=== PATIENT | female | born 1935 | race Caucasian/White ===

== ENCOUNTER 2017-02-09 10:18 | Outpatient (CLI) | payer MEDICARE, OTHER | END 2017-02-09 10:19 | disposition home or self-care (01) | DX: R39.15 Urgency of urination (principal) ==

== ENCOUNTER 2017-06-17 10:49 | Outpatient (CLI) | payer MEDICARE, OTHER ==
--- NOTE | 2017-06-19 07:34 | Mammography Report ---
DIGITAL BILATERAL SCREENING MAMMOGRAM: 06/17/2017 CLINICAL HISTORY: This is an 82-year-old female in for routine screening mammogram. Patient had pos sible aunt with breast cancer. Patient has had no prior breast surgeries. COMPARISON: 04/27/2009, 04/30/2010, 05/13/2011, 06/19/2015, 06/16/2016 TECHNIQUE: Craniocaudad and oblique lateral views of each breast were obtained with [facility] digital mammography. FINDINGS: Heterogeneously dense breasts are noted bilaterally. A few scattered benign-appearing brittanie cifications are noted in the breasts. No clusters of calcification are seen. No masses are noted. No change is detected. IMPRESSION: BREASTS APPEAR RADIOGRAPHICALLY BENIGN. BIRADS CATEGORY 1 - NEGATIVE. RECOMMENDATIONS: Annual bilateral screening mammography. STANDARD QUALIFYING STATEMENTS 1. This examination was reviewed with the aid of Computer-Aided Detection (CAD). 2. A negative or benign imaging report should not delay biopsy if clinically suspicious findings are present. Consider surgical consultation if warranted. More than 5% of cancers are not identified by i maging. 3. Dense breasts may obscure an underlying neoplasm. JOB #: [id number] EXT JOB #:[id number]
== END 2017-06-17 10:50 | disposition home or self-care (01) ==
LOC: DI.N 10:49
PROVIDERS: ATTEND Family Medicine
DX: Z12.31 Encounter for screening mammogram for malignant neoplasm of breast (principal)
CPT/HCPCS: 77067

== ENCOUNTER 2018-02-09 15:56 | Outpatient (CLI) | payer MEDICARE, OTHER ==
[2018-02-09 12:29] LABS: BASOPHILS % (AUTO) 0.7 %; EOSINOPHILS # (AUTO) 0.2 10^3/uL (0.0-0.7); EOSINOPHILS % (AUTO) 3.6 %; HGB - HEMOGLOBIN 13.1 g/dL (12.0-16.0); MEAN CORPUSCULAR HEMOGLOBIN 30.5 pg (27.0-31.0); MEAN CORPUSCULAR HGB CONC 33.6 g/dL (32.0-36.0); MEAN CORPUSCULAR VOLUME 90.7 fL (81.0-99.0); MEAN PLATELET VOLUME 7.4 fL (7.9-10.8); MONOCYTES # (AUTO) 0.6 10^3/uL (0.0-1.0); MONOCYTES % (AUTO) 9.6 %; NEUTROPHILS # (AUTO) 2.5 10^3/uL (1.5-6.6); NEUTROPHILS % (AUTO) 39.1 %; PLT - PLATELET COUNT 279 10^3/uL (130-450); RED CELL DISTRIBUTION WIDTH 13.4 % (12.0-15.0); WHITE BLOOD COUNT 6.3 x10^3/uL (4.8-10.8)
[2018-02-09 12:52] LABS: ALBUMIN 4.5 g/dL (3.2-5.5); ALBUMIN/GLOBULIN RATIO 1.7 (1.0-2.2); ALKALINE PHOSPHATASE 47 IU/L (42-121); ALT ALANINE AMINOTRANSFERASE 11 IU/L (10-60); AST ASPARTATE AMINOTRANSFERASE 21 IU/L (10-42); BILIRUBIN,TOTAL 0.4 mg/dL (0.2-1.0); BUN - BLOOD UREA NITROGEN 16 mg/dL (6-20); CALCIUM 9.7 mg/dL (8.5-10.3); CARBON DIOXIDE - CO2 25 mmol/L (21-32); CHLORIDE 104 mmol/L (101-111); CHOL/HDL RATIO 6.1 (<4.4); CHOLESTEROL 279 mg/dL; CREATININE 0.5 mg/dL (0.4-1.0); GFR - MDRD 118 (>89); GLUCOSE 86 mg/dL (70-100); HDL CHOLESTEROL 46 mg/dL; LDL CHOLESTEROL,CALCULATED 188 mg/dL; LDL/HDL RATIO 4.1 (<4.4); SODIUM 140 mmol/L (135-145); TOTAL PROTEIN 7.2 g/dL (6.7-8.2); VLDL CHOLESTEROL 45 mg/dL
== END 2018-02-09 15:57 | disposition home or self-care (01) ==
LOC: LAB.WCP 15:56
PROVIDERS: ATTEND Family Medicine
DX: I10 Essential (primary) hypertension (principal)
CPT/HCPCS: 36415; 80053; 80061; 83721; 85025

== ENCOUNTER 2018-08-03 13:44 | Outpatient (CLI) | payer MEDICARE, OTHER ==
--- NOTE | 2018-08-04 10:56 | Mammography Report ---
Reason: SCREENING MAMMO Procedure Date: 08/03/2018 Accession Number: [id number] / [id number] Procedure: MGN - Screening Mammo Dig Bilat CPT Code: FULL RESULT: EXAM: Screening Mammo Dig Bilat DATE: 08/03/2018 2:05 PM CLINICAL HISTORY: Routine screening TECHNIQUE: Bilateral CC and MLO views were obtained. COMPARISON: 06/17/2017, 06/16/2016, 06/19/2015 and 05/13/2011 FINDINGS: The breast tissue is heterogeneously dense. There is been no significant interval change. Scattered benign-appearing calcifications are stable. No suspicious masses, clustered microcalcifications, or regions of architectural distortion are identified. IMPRESSION: Benign findings RECOMMENDATION: Routine annual screening unless otherwise clinically indicated. BIRADS CATEGORY 2: Benign findings STANDARD QUALIFYING STATEMENTS: 1. This examination was reviewed with the aid of Computer-Aided Detection (CAD). 2. A negative or benign imaging report should not delay biopsy if clinically suspicious findings are present. Consider surgical consultation if warrented. More than 5% of cancers are not identified by imaging. 3. Dense breasts may obscure an underlying neoplasm.
== END 2018-08-03 13:45 | disposition home or self-care (01) ==
LOC: DI.N 13:44
PROVIDERS: ATTEND Radiology Diagnostic Radiology
DX: Z12.31 Encounter for screening mammogram for malignant neoplasm of breast (principal)
CPT/HCPCS: 77067

== ENCOUNTER 2018-09-29 14:41 | Outpatient (CLI) | payer MEDICARE, OTHER ==
--- NOTE | 2018-09-29 16:00 | XRAY Report ---
Reason: KNEE PAIN, RIGHT AND LEFT Procedure Date: 09/29/2018 Accession Number: [id number] / [id number] Procedure: XR - Knee 3 View BILAT CPT Code: FULL RESULT: EXAMS: 1. Right Knee Radiography 2. Left Knee Radiography EXAM DATE: 09/29/2018 02:59 PM. CLINICAL HISTORY: Knee pain, right and left. COMPARISON: None. TECHNIQUE: 3 views each. FINDINGS: Right Knee: Bones: Marginal osteophytosis, minimal. No fractures or bone lesions. Joints: Joint space narrowing of the weightbearing compartment lateral greater than medial with chondrocalcinosis. No effusion. No subluxations. Soft Tissues: Normal. No soft tissue swelling. Left Knee: Bones: Mild to moderate marginal osteophytosis. No fractures or bone lesions. Joints: Joint space narrowing of the weightbearing compartment of the lateral greater than medial weightbearing compartments with chondrocalcinosis.. No effusion. No subluxations. Soft Tissues: Normal. No soft tissue swelling. IMPRESSION: Degenerative changes in the weightbearing compartments, laterally greater than medial. RADIA
== END 2018-09-29 14:42 | disposition home or self-care (01) ==
LOC: DI 14:41
PROVIDERS: ATTEND Family Medicine
DX: M17.0 Bilateral primary osteoarthritis of knee (principal)

== ENCOUNTER 2019-04-14 08:14 | Outpatient (CLI) | payer MEDICARE, OTHER ==
[2019-04-14 12:58] LABS: BILIRUBIN,URINE NEGATIVE (NEGATIVE); GLUCOSE, URINE (UA) NEGATIVE (NEGATIVE); KETONES,URINE (UA) NEGATIVE (NEGATIVE); LEUKOCYTE ESTERASE, URINE TRACE (NEGATIVE); NITRITE,URINE NEGATIVE (NEGATIVE); OCCULT BLOOD,URINE TRACE-LYSE (NEGATIVE); PROTEIN,URINE NEGATIVE (NEGATIVE); UROBILINOGEN,URINE 0.2 (NORMAL) E.U./dL (NORMAL)
[2019-04-14 13:03] LABS: BASOPHILS # (AUTO) 0.1 10^3/uL (0.0-0.1); BASOPHILS % (AUTO) 0.9 %; EOSINOPHILS # (AUTO) 0.2 10^3/uL (0.0-0.7); EOSINOPHILS % (AUTO) 3.3 %; HGB - HEMOGLOBIN 13.4 g/dL (12.0-16.0); LYMPHOCYTES # (AUTO) 3.1 10^3/uL (1.5-3.5); LYMPHOCYTES % (AUTO) 44.2 %; MEAN CORPUSCULAR HEMOGLOBIN 30.3 pg (27.0-31.0); MEAN CORPUSCULAR VOLUME 91.8 fL (81.0-99.0); MEAN PLATELET VOLUME 7.4 fL (7.9-10.8); MONOCYTES # (AUTO) 0.7 10^3/uL (0.0-1.0); MONOCYTES % (AUTO) 9.7 %; NEUTROPHILS # (AUTO) 2.9 10^3/uL (1.5-6.6); NEUTROPHILS % (AUTO) 41.9 %; PLT - PLATELET COUNT 313 10^3/uL (130-450); RED BLOOD COUNT 4.43 10^6/uL (4.20-5.40); RED CELL DISTRIBUTION WIDTH 13.3 % (12.0-15.0)
[2019-04-14 13:04] LABS: BACTERIA,URINE Rare /HPF (None Seen); CLARITY,URINE CLEAR (CLEAR); RBC,URINE 0-5 /HPF (0-5); SQUAMOUS EPITHELIAL CELL,UR FEW Squamous (<= Few)
[2019-04-14 13:28] LABS: ALBUMIN 4.3 g/dL (3.2-5.5); ALBUMIN/GLOBULIN RATIO 1.6 (1.0-2.2); ALKALINE PHOSPHATASE 49 IU/L (42-121); ALT ALANINE AMINOTRANSFERASE 15 IU/L (10-60); AST ASPARTATE AMINOTRANSFERASE 21 IU/L (10-42); BILIRUBIN,TOTAL 0.4 mg/dL (0.2-1.0); BUN - BLOOD UREA NITROGEN 15 mg/dL (6-20); CALCIUM 9.7 mg/dL (8.5-10.3); CARBON DIOXIDE - CO2 27 mmol/L (21-32); CHLORIDE 102 mmol/L (101-111); CHOL/HDL RATIO 5.9 (<4.4); CHOLESTEROL 259 mg/dL; CREATININE 0.6 mg/dL (0.4-1.0); GFR - MDRD 95 (>89); GLUCOSE 88 mg/dL (70-100); HDL CHOLESTEROL 44 mg/dL; LDL CHOLESTEROL,CALCULATED 158 mg/dL; LDL/HDL RATIO 3.6 (<4.4); SODIUM 139 mmol/L (135-145); VLDL CHOLESTEROL 57 mg/dL
== END 2019-04-14 08:15 | disposition home or self-care (01) ==
LOC: LAB.WCP 08:14
PROVIDERS: ATTEND Family Medicine
DX: I10 Essential (primary) hypertension (principal); E78.5 Hyperlipidemia, unspecified
CPT/HCPCS: 36415; 80053; 80061; 81001; 83721; 85025

== ENCOUNTER 2019-05-17 10:18 | Outpatient (CLI) | payer MEDICARE, OTHER ==
--- NOTE | 2019-05-17 13:03 | XRAY Report ---
Reason: COUGH,CHRONIC Procedure Date: 05/17/2019 Accession Number: [id number] / [id number] Procedure: WCP - Chest 2 View X-Ray CPT Code: 46848 FULL RESULT: EXAM: CHEST RADIOGRAPHY EXAM DATE: 05/17/2019 10:37 AM. CLINICAL HISTORY: Cough, chronic. COMPARISON: CHEST 2 VIEW PA/LAT 05/20/2015 11:25 AM. TECHNIQUE: 2 views. FINDINGS: Lungs/Pleura: Increasing crowding of retrocardiac pulmonary markings on the PA view without significant posterior airspace consolidation on lateral view. Additionally, in the lateral lower left lung is an apparent ill-defined nodule. This is not definitely demonstrated on the 2015 radiograph. Mediastinum: The cardiac silhouette is not enlarged. Aortic contour is tortuous with subtle calcifications. Other: None. IMPRESSION: Increasing pulmonary markings at the left lung base with suggestion of ill-defined nodule. Recommendation: Chest CT. RADIA
== END 2019-05-17 10:19 | disposition home or self-care (01) ==
LOC: DI.WCP 10:18
PROVIDERS: ATTEND Family Medicine
DX: R91.8 Other nonspecific abnormal finding of lung field (principal)
CPT/HCPCS: 71046

== ENCOUNTER 2019-05-17 10:20 | Outpatient (CLI) | payer MEDICARE, OTHER ==
--- NOTE | 2019-05-17 13:03 | XRAY Report ---
Reason: LOW BACK PAIN,CHRONIC Procedure Date: 05/17/2019 Accession Number: [id number] / [id number] Procedure: WCP - Lumbar Spine 2 View CPT Code: FULL RESULT: EXAM: LUMBOSACRAL SPINE RADIOGRAPHY EXAM DATE: 05/17/2019 10:37 AM. CLINICAL HISTORY: Low back pain, chronic. COMPARISONS: 02/20/2016 10:48 AM. TECHNIQUE: 2 views. FINDINGS: Alignment: There is a mild levoconvex scoliosis of the lumbar spine centered about L3, not significantly changed compared to 2016. There is no significant listhesis. Bones: Five [id number] lumbar vertebral bodies are present. The bones are qualitatively osteopenic; this limits evaluation for underlying fractures or masses. No definite fracture is detected. Disks: There is advanced loss of disk space height at essentially all lumbar levels with endplate sclerosis and marginal osteophytosis, progressed compared to 2016. Facets: Multilevel facet arthropathy is most pronounced at L4 and L5 where it is at least moderate. Sacroiliac Joints: Unremarkable. Soft Tissues: Normal. The visualized bowel gas pattern is normal. IMPRESSION: Multilevel degenerative changes of the lumbar spine. RADIA
== END 2019-05-17 10:21 | disposition home or self-care (01) ==
LOC: DI.WCP 10:20
PROVIDERS: ATTEND Family Medicine
DX: M47.816 Spondylosis without myelopathy or radiculopathy, lumbar region (principal); M51.36 Other intervertebral disc degeneration, lumbar region; M41.86 Other forms of scoliosis, lumbar region; R91.8 Other nonspecific abnormal finding of lung field
CPT/HCPCS: 71046; 72100

== ENCOUNTER 2019-05-19 14:32 | Outpatient (CLI) | payer MEDICARE, OTHER ==
--- NOTE | 2019-05-19 16:30 | CT Report ---
Reason: PULMONARY NODULE Procedure Date: 05/19/2019 Accession Number: [id number] / [id number] Procedure: CT - CHEST WO CPT Code: FULL RESULT: EXAM: CT CHEST EXAM DATE: 05/19/2019 02:47 PM. CLINICAL HISTORY: Pulmonary nodule. COMPARISONS: CHEST 2 VIEW 05/17/2019 10:15 AM. TECHNIQUE: Routine helical CT imaging was performed through the chest. IV contrast: None. Reconstructions: Coronal and sagittal. In accordance with CT protocol optimization, one or more of the following dose reduction techniques were utilized for this exam: automated exposure control, adjustment of mA and/or KV based on patient size, or use of iterative reconstructive technique. FINDINGS: Lungs/Pleura: There is a scant amount of linear consolidation or scarring in the right middle lobe and lingula. The finding in the lingula likely accounts for the radiographic finding on the prior study. There are a few solid nodules which measure 3 mm or less. Right upper lobe 2 mm pulmonary nodule image 16 series 3. Right upper lobe 2 mm nodule image 27. 2 mm left upper lobe nodule image 21. In the posterior left lower lobe is a linear Subsolid focus measuring 1.5 x 0.7 cm, image 42. At the right lung base is a minor amount of linear consolidation versus scarring or atelectasis, image 49 through 51. No pleural effusion or pneumothorax. Mediastinum: There are moderate three-vessel coronary calcifications. There is a mild amount of calcification of the aortic arch. There is no pericardial effusion. There is no mediastinal or hilar lymphadenopathy by size criteria. Bones: No aggressive osseous lesions. Visualized Abdomen: Partial visualization of a 1.8 cm exophytic hyperdense left renal lesion. Other: None. IMPRESSION: Linear consolidation or scarring in the lingula and right middle lobe account for the previously identified radiographic abnormality. Hyperdense exophytic 1.8 cm left renal lesion, partially imaged and uncharacterized. Recommend renal ultrasound as a low cost no radiation initial modality to see if this can be characterized as a simple cyst. Recommend follow-up of the described nodule(s) according to the following guidelines: Fleischner Society Recommendations 2017 MacMahon et al. Radiology 2017 Solid Nodules-Low Risk Patients: <6 mm (single or multiple) - No routine follow-up* Solid Nodules-High Risk Patients: <6 mm (single or multiple) -Optional CT at 12 months* *Nodules < 6mm do not require routine follow-up, but suspicious nodule morphology, upper lobe location, or both may warrant 12 month follow-up Subsolid nodules: >=6 mm (single GG) -CT at 6-12 months to confirm, then CT q2 years until 5 years RADIA
== END 2019-05-19 14:33 | disposition home or self-care (01) ==
LOC: DI 14:32
PROVIDERS: ATTEND Family Medicine
DX: R91.1 Solitary pulmonary nodule (principal); N28.89 Other specified disorders of kidney and ureter
CPT/HCPCS: 71250

== ENCOUNTER 2019-06-04 15:37 | Outpatient (CLI) | payer MEDICARE, OTHER ==
--- NOTE | 2019-06-05 | Ultrasound Report ---
Reason: KIDNEY MASS Procedure Date: 06/04/2019 Accession Number: [id number] / [id number] Procedure: US - Retroperitoneal CPT Code: FULL RESULT: EXAM: RENAL ULTRASOUND EXAM DATE: 06/04/2019 05:30 PM. CLINICAL HISTORY: Kidney mass. Evaluate. Left renal mass/cyst seen on the chest CT from 05/19/2019. COMPARISON: 02/20/2016 10:48 PM 02/20/2016 10:48 AM ABDOMEN/PELVIS W/O 05/03/2014 10:31 AM CHEST W/O 05/19/2019 2:43 PM. TECHNIQUE: Real-time scanning was performed with static images obtained. FINDINGS: Right Kidney: 9.8 x 4.9 x 5.2 cm. Mid pole renal cyst measuring 2.7 x 2.7 x 2.8 cm, appears to have a thin septation. This cyst measures increased compared to the prior where it measured 1.8 cm. Renal cortical thickness and echotexture appear within normal limits. No hydronephrosis. Left Kidney: 9.7 x 3.8 x 4.8 cm. Small exophytic upper pole renal cyst measuring 1.6 x 1.5 x 1.5 cm, but appears simple. Renal cortical thickness and echotexture appear within normal limits. No hydronephrosis. Bladder: Bilateral jets seen. The bladder volume was 75.5 cc. The bladder appears unremarkable. Other: Fatty liver. IMPRESSION: 1. Minimally complex right renal cyst. Small simple left upper pole renal cyst. No evidence for a solid renal mass. 2. Fatty liver. RADIA
== END 2019-06-04 15:38 | disposition home or self-care (01) ==
LOC: DI 15:37
PROVIDERS: ATTEND Family Medicine
DX: N28.1 Cyst of kidney, acquired (principal); K76.0 Fatty (change of) liver, not elsewhere classified
CPT/HCPCS: 76770

== ENCOUNTER 2019-10-06 10:15 | Outpatient (CLI) | payer MEDICARE, OTHER ==
--- NOTE | 2019-10-07 08:18 | Mammography Report ---
Reason: ROUTINE MAMMO Procedure Date: 10/06/2019 Accession Number: [id number] / [id number] Procedure: MGN - Screening Mammo Dig Bilat CPT Code: Final Report FULL RESULT: EXAM: Screening Mammo Dig Bilat DATE: 10/06/2019 10:37 AM CLINICAL HISTORY: Screening encounter. TECHNIQUE: (B) - Bilateral CC and MLO views were obtained. Left cleavage view is obtained. COMPARISON: 08/03/2018 through 04/30/2010. PARENCHYMAL PATTERN: (D) - The breast(s) demonstrate(s) heterogeneously dense fibroglandular parenchyma. FINDINGS: There are typically benign coarse calcifications as well as typically benign vascular calcifications. There are no suspicious masses, calcifications, or areas of distortion. IMPRESSION: Benign findings. BI-RADS category 2. RECOMMENDATION: (ANNUAL) - Recommend routine annual screening mammography. BI-RADS CATEGORY: (2) - Benign Findings. STANDARD QUALIFYING STATEMENTS: 1. This examination was not reviewed with the aid of Computer-Aided Detection (CAD). 2. A negative or benign imaging report should not preclude biopsy if clinically suspicious findings are present. 3. Dense breasts may obscure an underlying neoplasm. 4. This examination was reviewed without the aid of 3D breast imaging (tomosynthesis).
== END 2019-10-06 10:16 | disposition home or self-care (01) ==
LOC: DI.N 10:15
DX: Z12.31 Encounter for screening mammogram for malignant neoplasm of breast (principal)
CPT/HCPCS: 77067

== ENCOUNTER 2019-10-14 09:20 | Outpatient (CLI) | payer MEDICARE, OTHER ==
--- NOTE | 2019-10-15 09:03 | XRAY Report ---
Reason: LEFT CERVICAL RADICULOPATHY Procedure Date: 10/14/2019 Accession Number: [id number] / [id number] Procedure: WCP - Cervical Spine 2 View CPT Code: Final Report FULL RESULT: EXAM: CERVICAL SPINE RADIOGRAPHY EXAM DATE: 10/14/2019 09:47 AM. CLINICAL HISTORY: LEFT CERVICAL RADICULOPATHY. COMPARISONS: None. TECHNIQUE: 2 views. FINDINGS: Alignment: There is 2-3 mm degenerative retrolisthesis at C4-C5 and C5-C6. Bones: The cervical vertebral bodies and posterior elements are visualized from the skull base through C7-T1. No fractures or bone lesions. Disks: Severe degenerative disk disease from C4-C7. Moderate degenerative disk disease at C7-T1. Facets: Mild multilevel degenerative changes. Soft Tissues: No prevertebral soft tissue swelling. Bilateral carotid artery calcifications. The visualized lung apices appear clear. IMPRESSION: 1. Multilevel degenerative disk disease and degenerative joint disease with 2-3 mm degenerative retrolisthesis at C4-C5 and C5-C6. RADIA
== END 2019-10-14 23:59 | disposition home or self-care (01) ==
LOC: DI.WCP 09:20
PROVIDERS: ATTEND Family Medicine
DX: M50.321 Other cervical disc degeneration at C4-C5 level (principal); M47.812 Spondylosis without myelopathy or radiculopathy, cervical region; M43.12 Spondylolisthesis, cervical region
CPT/HCPCS: 72040

== ENCOUNTER 2020-11-03 14:16 | Outpatient (CLI) | payer MEDICARE, OTHER ==
--- NOTE | 2020-11-03 16:15 | Ultrasound Report ---
PROCEDURE: Retroperitoneal INDICATIONS: BILAT LOW BACK PAIN, HX OF UTI, LUTS TECHNIQUE: Real-time scanning was performed of the kidneys and bladder, with image documentation. COMPARISON: 06/05/2019. Correlation is also made with prior CT examinations 05/19/2019 and 05/03/2014 FINDINGS: Kidneys: Kidneys are normal in size. Right kidney measures 9.3 cm long; left kidney measures 10.9 c m long. Right renal cortical thickness is 1.2 cm; left renal cortical thickness is 1.5 cm. No solid masses or hydronephrosis. The previously seen left kidney calcifications are not appreciated on the current study. Within the lateral mid right kidney, there is a 2.6 cyst seen, with a mild septation. This is not sig nificantly changed compared to the prior. At the superior pole of the left kidney, there is a 1.2 cm simple appearing cyst. Bladder: The bladder was not appropriately prepped. It is not well seen. There is a distal aortic aneurysm, which measures 2.9 x 3 cm in greatest axial dimension. Mural calci fication can be seen. Irregular flow can be seen within it. IMPRESSION: Mildly septated right renal cyst, as before. Simple left renal cyst. Minimal distal abdominal aortic aneurysm. Reviewed by: Ayaz Calderon MD on 11/03/2020 3:14 PM [facility] Approved by: Ayaz Calderon MD on 11/03/2020 3:14 PM [facility] Station ID: [id number]
== END 2020-11-03 14:17 | disposition home or self-care (01) ==
LOC: DI 14:16
PROVIDERS: ATTEND Urology
DX: Q61.02 Congenital multiple renal cysts (principal); I71.4 Abdominal aortic aneurysm, without rupture

== ENCOUNTER 2020-12-06 08:00 | Outpatient (CLI) | payer MEDICARE, OTHER ==
[2020-12-06 18:44] LABS: BASOPHILS % (AUTO) 0.5 %; EOSINOPHILS # (AUTO) 0.1 10^3/uL (0.0-0.7); EOSINOPHILS % (AUTO) 1.6 %; HGB - HEMOGLOBIN 13.4 g/dL (12.0-16.0); LYMPHOCYTES # (AUTO) 3.4 10^3/uL (1.5-3.5); MEAN CORPUSCULAR VOLUME 93.9 fL (81.0-99.0); MEAN PLATELET VOLUME 9.5 fL (7.9-10.8); MONOCYTES # (AUTO) 0.5 10^3/uL (0.0-1.0); MONOCYTES % (AUTO) 6.8 %; NEUTROPHILS # (AUTO) 3.8 10^3/uL (1.5-6.6); NEUTROPHILS % (AUTO) 47.7 %; PLT - PLATELET COUNT 315 10^3/uL (130-450); RED BLOOD COUNT 4.46 10^6/uL (4.20-5.40); RED CELL DISTRIBUTION WIDTH 12.8 % (12.0-15.0); WHITE BLOOD COUNT 7.9 x10^3/uL (4.8-10.8)
[2020-12-06 19:18] LABS: ALBUMIN 4.7 g/dL (3.2-5.5); ALKALINE PHOSPHATASE 43 IU/L (42-121); ALT ALANINE AMINOTRANSFERASE 14 IU/L (10-60); AST ASPARTATE AMINOTRANSFERASE 20 IU/L (10-42); BILIRUBIN,TOTAL 0.5 mg/dL (0.2-1.0); BUN - BLOOD UREA NITROGEN 14 mg/dL (6-20); CARBON DIOXIDE - CO2 28 mmol/L (21-32); CHLORIDE 106 mmol/L (101-111); CHOL/HDL RATIO 4.7 (<4.4); CHOLESTEROL 270 mg/dL; CREATININE 0.6 mg/dL (0.4-1.0); GLUCOSE 84 mg/dL (70-100); HDL CHOLESTEROL 58 mg/dL; LDL CHOLESTEROL,CALCULATED 175 mg/dL; SODIUM 142 mmol/L (135-145); TOTAL PROTEIN 7.1 g/dL (6.7-8.2); VLDL CHOLESTEROL 37 mg/dL
== END 2020-12-06 23:59 | disposition home or self-care (01) ==
LOC: LAB.WCP 08:00
PROVIDERS: ATTEND Family Medicine
DX: E78.5 Hyperlipidemia, unspecified (principal); K21.9 Gastro-esophageal reflux disease without esophagitis
CPT/HCPCS: 36415; 80053; 80061; 83721; 85025

== ENCOUNTER 2020-12-20 08:11 | Outpatient (CLI) | payer MEDICARE, OTHER ==
--- NOTE | 2020-12-20 09:12 | DEXA Report ---
PROCEDURE: Dexa Spine and/or Hip INDICATIONS: POSTMENOPAUSAL TECHNIQUE: Dual energy x-ray absorptiometry (DXA) was performed on a [employer] System. Regions measur ed are the AP Spine, femoral neck, and if needed forearm. COMPARISON: None. FINDINGS: Lumbar Spine: Bone Mineral Density 1.598 g/cm/cm,T score 3.5, normal bone density Left Femoral Neck: Bone Mineral Density 1.038 g/cm/cm, T score 0.2, normal bone density (T score greater or equal to -1.0: NORMAL) (T score from -1.1 to -2.4: OSTEOPENIA) (T score less than or equal to -2.5 to: OSTEOPOROSIS) Impression: NORMAL BONE DENSITY Patients with diagnosis of osteoporosis or osteopenia should have regular bone mineral density assess ment. For those eligible for Medicare, routine testing is allowed once every 2 years. Testing frequ ency can be increased for patients who have rapidly progressing disease or for those who are receivin g medical therapy to restore bone mass. Reviewed by: Brody Garcias MD on 12/20/2020 9:11 AM PST Approved by: Brody Garcias MD on 12/20/2020 9:11 AM PST Station ID: [id number]
== END 2020-12-20 08:12 | disposition home or self-care (01) ==
LOC: DI 08:11
PROVIDERS: ATTEND Family Medicine
DX: Z78.0 Asymptomatic menopausal state (principal)

== ENCOUNTER 2021-04-18 16:26 | Outpatient (CLI) | payer MEDICARE, OTHER ==
--- NOTE | 2021-04-18 09:46 | XRAY Report ---
PROCEDURE: Knee 4 View BILAT INDICATIONS: BILATERAL ARTHRITIS, KNEES TECHNIQUE: 3 views of the right and left knee(s) were acquired. COMPARISON: X-ray, 3 views, 07/07/2019. FINDINGS: Right knee: No fractures or dislocations. No suspicious bony lesions. There is tricompartmental ost eoarthritic changes, most pronounced and moderate at in the medial femorotibial compartment. Small justin int effusion. Left knee: No fractures or dislocations. No suspicious bony lesions. There is tricompartmental oste oarthritic changes, most pronounced and severe in the lateral femorotibial compartment. Small joint e ffusion. IMPRESSION: Severe left and moderate right knee osteoarthritis. Small knee joint effusions bilaterally. Reviewed by: Hussein Avalos MD on 04/18/2021 9:44 AM PDT Approved by: Hussein Avalos MD on 04/18/2021 9:44 AM PDT Station ID: [id number]
== END 2021-04-18 23:59 | disposition home or self-care (01) ==
LOC: DI.N 16:26
PROVIDERS: ATTEND Orthopaedic Surgery
DX: M17.0 Bilateral primary osteoarthritis of knee (principal); M25.462 Effusion, left knee; M25.461 Effusion, right knee

== ENCOUNTER 2021-12-23 15:21 | Outpatient (CLI) | payer MEDICARE, OTHER ==
--- NOTE | 2021-12-30 09:53 | Mammography Report ---
BILATERAL DIGITAL SCREENING MAMMOGRAM: 12/23/2021 CLINICAL: Routine screening. Comparison is made to exams dated: 10/06/2019 mammogram, 08/03/2018 mammogram, 06/17/2017 mammogram, 05/30 mammogram, and 06/19/2015 mammogram - [facility]. The tissue of both breasts is heterogeneously dense. This may lower the sensitivity of mammography. There are benign calcifications in both breasts. No significant masses, calcifications, or other findings are seen in either breast. There has been no significant interval change. IMPRESSION: BENIGN There is no mammographic evidence of malignancy. A 1 year screening mammogram is recommended. This exam was interpreted at Station ID: [id number]. NOTE: For mammograms, a report in lay terms will be sent to the patient. Approximately 15% of breast malignancies will not be visualized mammographically. In the management of a palpable breast mass, a negative mammogram must not discourage biopsy of a clinically suspicious lesion. Electronically Signed By: Avery Bo M.D. [facility] [place]:12/24/2021 13:06:19 ACR BI-RADS Category 2: Benign Finding(s) 3342F PARENCHYMAL PATTERN: (D) - The breast(s) demonstrate(s) heterogeneously dense fibroglandular [place]. BI-RADS CATEGORY: (2) - 2 RECOMMENDATION: (ANNUAL) - Recommend routine annual screening mammography. [id number] 1 year screening LATERALITY: (B)
== END 2021-12-23 15:22 | disposition home or self-care (01) ==
LOC: DI.N 15:21
DX: Z12.31 Encounter for screening mammogram for malignant neoplasm of breast (principal)